=== PATIENT | male | born 1970 | race Caucasian/White ===

== ENCOUNTER 2019-05-03 17:49 | Emergency (ER) | payer OTHER ==
[~2019-05-03] VITALS: Ht 167.6 cm; Wt 90.7 kg
--- NOTE | 2019-05-03 17:58 | NUR ---
Pt is in room #1b. dr Camejo evaluated the pt.
[2019-05-03 18:08] VITALS: BP 139/77
--- NOTE | 2019-05-03 18:08 | NUR ---
PT WAS D/C'd TO HOME. D/C INSTRUCTIONS GIVEN TO THE PT.
== END 2019-05-03 18:09 | disposition home or self-care (01) ==
LOC: ER 17:54
DX: R19.7 Diarrhea, unspecified (principal)
CPT/HCPCS: A4663

== ENCOUNTER 2019-05-24 05:08 | Emergency (ER) | payer OTHER ==
[~2019-05-24] VITALS: Ht 172.7 cm; Wt 90.7 kg
--- NOTE | 2019-05-24 05:15 | NUR ---
dr: LOUANN AT B/S FOR MSE.
--- NOTE | 2019-05-24 05:27 | NUR ---
Patient discharged to home in stable conditon. Written and verbal after care instructions given. Patient verbalizes understanding of instructions.V/S WNL.WENT HOME WITH ALL BELONGINGS .AMBULATORY.
[2019-05-24 05:29] VITALS: BP 130/73
== END 2019-05-24 05:32 | disposition home or self-care (01) ==
LOC: ER 05:18
DX: H10.9 Unspecified conjunctivitis (principal)
CPT/HCPCS: A4663

== ENCOUNTER 2019-09-07 17:49 | Emergency (ER) | payer OTHER ==
[~2019-09-07] VITALS: Ht 172.7 cm; Wt 90.7 kg
--- NOTE | 2019-09-07 18:35 | NUR ---
PT IS IN ROOM #1B. DR SWANSON EVALUATED THE PT.
[2019-09-07] MEDS ORDERED: CEFTRIAXONE 1 G VIAL ONE (18:41)
[2019-09-07] MEDS ORDERED: LIDOCAINE HCL 2% 20 ML VIAL ONE (18:42)
[2019-09-07] MEDS ORDERED: CEFTRIAXONE 1 G VIAL IM ONE (18:45)
--- NOTE | 2019-09-07 18:47 | NUR ---
PT WAS D/C'd TO HOME. D/C INSTRUCTIONS GIVEN TO THE PT.
[2019-09-07 18:49] VITALS: BP 132/75
== END 2019-09-07 18:51 | disposition home or self-care (01) ==
LOC: ER 17:50
DX: H00.014 Hordeolum externum left upper eyelid (principal)
CPT/HCPCS: 96372; 99283; J0696; J3490; A4663

== ENCOUNTER 2021-01-23 06:44 | Emergency (ER) | payer OTHER ==
[~2021-01-23] VITALS: Ht 175.3 cm; Wt 86.2 kg
[2021-01-23] MEDS ORDERED: NAPR-1164 PO (08:44)
--- NOTE | 2021-01-23 09:18 | NUR ---
Patient discharged to home in stable condition. Written and verbal after care instructions given. Patient verbalizes understanding of instructions. Stressed follow up or return to ER for worsening s/s.
== END 2021-01-23 09:18 | disposition home or self-care (01) ==
LOC: ER 06:49
DX: M25.542 Pain in joints of left hand (principal); R03.0 Elevated blood-pressure reading, without diagnosis of hypertension
CPT/HCPCS: 73130; A4663

== ENCOUNTER 2021-05-18 11:27 | Emergency (ER) | payer OTHER ==
[~2021-05-18] VITALS: Ht 172.7 cm; Wt 99.8 kg
[~2021-05-18 11:27] MED LIST: NAPR-1164 PO
--- NOTE | 2021-05-18 11:39 | NUR ---
PT IS IN ROOM #2A, DR BOWMAN EVALUATED THE PT.
[2021-05-18] MEDS ORDERED: TDAP DIPH,PERTUSS,TET VAC/PF 0.5 ML DISP.SYRIN IM ONE ×2 (11:45→12:04)
--- NOTE | 2021-05-18 12:12 | NUR ---
PT WAS D/C'd TO HOME BY DR BOWMAN. D/C INSTRUCTIONS GIVEN TO THE PT BY DR BOWMAN.
[2021-05-18 12:13] VITALS: BP 132/75
== END 2021-05-18 12:14 | disposition home or self-care (01) ==
LOC: ER 11:28
DX: S01.01XA Laceration without foreign body of scalp, initial encounter (principal); V49.9XXA Car occupant (driver) (passenger) injured in unspecified traffic accident, initial encounter; Y92.89 Other specified places as the place of occurrence of the external cause
CPT/HCPCS: 90715; A4663

== ENCOUNTER 2022-06-18 19:18 | Emergency (ER) | payer MEDICAID, OTHER ==
[~2022-06-18] VITALS: Ht 167.6 cm; Wt 102.1 kg
[2022-06-18] MEDS ORDERED: AMOX875T2 PO (19:41)
[2022-06-18 19:53] VITALS: BP 128/75
== END 2022-06-18 19:54 | disposition home or self-care (01) ==
LOC: ER 19:31
DX: H66.93 Otitis media, unspecified, bilateral (principal); Z79.899 Other long term (current) drug therapy
CPT/HCPCS: A4663

== ENCOUNTER 2023-02-09 06:24 | Emergency (ER) | payer MEDICAID ==
[~2023-02-09] VITALS: Ht 175.3 cm; Wt 106.6 kg
[~2023-02-09 06:24] MED LIST changes: +AMOX875T2 PO
[2023-02-09 06:50] VITALS: O2SAT 96
[2023-02-09] MEDS ORDERED: TETRACAINE HCL 0.5% OPHT DROP 2 ML BOTTLE ONE (07:38)
[2023-02-09] MEDS ORDERED: FLUORESCEIN SODIUM 1 MG STRIP ONE (07:39)
[2023-02-09] MEDS ORDERED: GENT5DRO4 LEFTEYE (08:25)
[2023-02-09] MEDS ORDERED: AMOX-430 PO (08:25)
[2023-02-09] MEDS ORDERED: TETRACAINE HCL 0.5% OPHT DROP 2 ML BOTTLE OP ONE (08:45)
[2023-02-09] MEDS ORDERED: FLUORESCEIN SODIUM 1 MG STRIP OP ONE (09:00)
== END 2023-02-09 08:52 | disposition home or self-care (01) ==
LOC: ER 06:30
DX: H00.014 Hordeolum externum left upper eyelid (principal); Z79.2 Long term (current) use of antibiotics; Z79.899 Other long term (current) drug therapy
CPT/HCPCS: A4606; A4663